=== PATIENT | female | born 1950 | race Caucasian/White ===

== ENCOUNTER 2018-06-19 08:39 | Emergency (ER) | payer OTHER ==
[~2018-06-19] VITALS: Ht 167.6 cm; Wt 65.5 kg
[2018-06-19 08:47] VITALS: Ht 167.6 cm; Wt 65.5 kg
[2018-06-19] MEDS ORDERED: DONE5TAB7 PO (11:18)
[2018-06-19] MEDS ORDERED: GABA300C16 PO ×2 (11:18→11:26)
--- NOTE | 2018-06-19 11:18 | ERD ---
ER Documentation Chief Complaint Chief Complaint Complains of generalized weakness x 1 week HPI This is a 68-year-old female who just moved to [place] from [place] on Tuesday and does not have any medication. She is here because she needs med refills for her arthritis and cholesterol and she is having anxiety and insomnia she has no chest pain or physical complaints she does need some medicine for sleep and refills ROS All systems reviewed and are negative except as per history of present illness. PMhx/Soc History of Surgery: Yes (REMOVAL OF A CLOT) Anesthesia Reaction: No Hx Neurological Disorder: No Hx Respiratory Disorders: No Hx Cardiac Disorders: Yes (HTN, HIGH CHOLESTEROL) Hx Psychiatric Problems: Yes (ANXIETY, DEPRESSION) Hx Miscellaneous Medical Probl: Yes (RHEUMATOID ARTHRITIS) Hx Alcohol Use: No Hx Substance Use: No Hx Tobacco Use: No Smoking Status: Never smoker FmHx Family History: No coronary disease Physical Exam Vitals Vital Signs Date Temp Pulse Resp B/P (MAP) Pulse Ox O2 O2 Flow FiO2 Time Delivery Rate 06/19/18 99.2 74 20 152/70 97 08:47 (97) Physical Exam Const: Well-developed, well-nourished Head: Atraumatic, normocephalic Eyes: Normal Conjunctiva, PERRLA, EOMI, normal sclera, no nystagmus ENT: Normal External Ears, Nose and Mouth, moist mucus membranes. Neck: Full range of motion. No meningismus, no lymphadenopathy. Resp: Clear to auscultation bilaterally, no wheezing, rhonchi, rales Cardio: Regular rate and rhythm, no murmurs, S1 S2 present Abd: Soft, non tender x 4, non distended. Normal bowel sounds, no guarding or rebound, no pulsitile abdominal masses or bruits Skin: No petechiae or rashes, no ecchymosis , no maculopapular rash Back: No midline or flank tenderness Ext: No cyanosis, or edema, FROM x 4, normal inspection, neurovascularly intact x 4 Neur: Awake and alert, STR 5/5 x 4, sensation intact x 4, no focal findings, cerebellum intact Psych: Normal Mood and Affect Departure Diagnosis: Primary Impression: Anxiety Additional Impressions: Insomnia Insomnia type: unspecified Qualified Codes: G47.00 - Insomnia, unspecified Medication refill Condition: THOR Aj DO Jun 19, 2018 11:18
[2018-06-19] MEDS ORDERED: MEMA5TAB PO (11:19)
[2018-06-19] MEDS ORDERED: PARO-37 PO (11:19)
[2018-06-19] MEDS ORDERED: SIMV20TA2 PO (11:26)
[2018-06-19] MEDS ORDERED: MIRT30TA5 PO (11:26)
[2018-06-19] MEDS ORDERED: PRED5TAB PO (11:26)
[2018-06-19] MEDS ORDERED: LORA1TAB PO (11:26)
[2018-06-19] MEDS ORDERED: QUET200T27 PO (11:26)
[2018-06-19] MEDS ORDERED: LAMO25TA PO (11:30)
[2018-06-19] MEDS ORDERED: MET25 PO (11:30)
[2018-06-19] MEDS ORDERED: LOSA25TA12 PO (11:31)
[2018-06-19] MEDS ORDERED: DIAZ5TAB4 PO (11:31)
[2018-06-19] MEDS ORDERED: LISI-471 PO ×2 (11:32→11:35)
[2018-06-19] MEDS ORDERED: OMEP20CA16 PO (11:32)
[2018-06-19] MEDS ORDERED: SIMV20TA PO (11:33)
[2018-06-19 11:43] VITALS: BP 147/72; PULSE 76; RESP 17
== END 2018-06-19 11:43 | disposition home or self-care (01) ==
LOC: E/R 08:39
DX: F41.9 Anxiety disorder, unspecified (principal); G47.00 Insomnia, unspecified; I10 Essential (primary) hypertension; Z76.0 Encounter for issue of repeat prescription
CPT/HCPCS: 99281